=== PATIENT | male | born 1995 | race Caucasian/White ===

== ENCOUNTER 2018-12-13 06:07 | Observation (INO) | payer BC ==
[~2018-12-13] VITALS: Ht 180.3 cm; Wt 79.5 kg
[2018-12-13] VITALS (8 sets, daily range): BP systolic 120–131; BP diastolic 62–76; PULSE 85–93; TEMP 98.2
--- NOTE | 2018-12-13 10:00 | NUR ---
PATIENT CALLED OUT C/O FEELING NAUSEATED. PATIENT IS VERY PALE AND DIAPHORETIC. VSS. PATIENT C/O OF NAUSEA. GAVE PRN ZOFRAN. COOL CLOTH APPLIED TO HEAD. UPON ASSESSMENT OF MOUTH NOTED NO VISUAL SIGNS OF ACTIVE BLEEDING. WILL MONITOR. MOTHER AT BEDSIDE.
--- NOTE | 2018-12-13 10:35 | NUR ---
PATIENT STILL PALE AND CLAMMY. REPORTS HE DOESN'T FEEL MUCH BETTER. VSS. FRESH COOL CLOTH APPLIED TO HEAD BY MOTHER. WILL MONITOR.
--- NOTE | 2018-12-13 13:49 | NUR ---
ZULEIMA galicia met with patient and patient's mother (Zuleima) to discuss discharge plan. The patient's permanent residence is in [place] with his mother but he has been staying in [place]. The patient does not use any DME and reports indpendence with ADLs. The patient's PCP is Dr. Evans Loya and he receives his medications from [facility] in [place]. The patient and patient's mother report no difficulties obtaining his medications. The patient does not have a DPOA-HC completed and was not interested in completing one at this time. The patient plans to return home upon discharge. No additional needs at this time.
--- NOTE | 2018-12-13 17:30 | NUR ---
PATIENT DISCHARGING HOME VIA AMBULATORY TO PERSONAL VEHICLE WITH PARENTS. GAVE DISCHARGE INSTRUCTIONS. ANSWERED ALL QUESTIONS/CONCERNS. STUDENT NURSE DC'Cheko IV. PATIENT DISCHARGED HOME WITH PERSONAL BELONGINGS.
== END 2018-12-13 17:30 | disposition home or self-care (01) ==
LOC: COL.ER 06:07 → SURG 06:56
PROVIDERS: ADMIT Student in an Organized Health Care Education/Training Program
DX: J95.830 Postprocedural hemorrhage of a respiratory system organ or structure following a respiratory system procedure (principal)
CPT/HCPCS: J1100; J2270; J2405; J2704; J3010; J7030